=== PATIENT | male | born 1960 | race Caucasian/White ===

== ENCOUNTER 2022-08-29 21:34 | Emergency (ER) | payer BC ==
[~2022-08-29] VITALS: Ht 182.9 cm; Wt 124.7 kg
[2022-08-29] MEDS ORDERED: DOXYCYCLINE HY100 MG PO (22:26)
[2022-08-29] MEDS ORDERED: MEDROL4 M2 PO (22:26)
[2022-08-29 22:44] VITALS: BP 142/96; PULSE 62; RESP 16; O2SAT 100
== END 2022-08-29 22:46 | disposition home or self-care (01) ==
LOC: ER 21:48
DX: L25.9 Unspecified contact dermatitis, unspecified cause (principal); I10 Essential (primary) hypertension
CPT/HCPCS: 99282